=== PATIENT | female | born 1960 | race Caucasian/White ===

== ENCOUNTER 2019-01-01 11:14 | Outpatient (CLI) | payer BC, SELFPAY ==
[2019-01-01 13:10] LABS: Glucose 106 mg/dL (70-100); TSH (W/Ref FT4) 1.36 uIU/mL (0.358-3.74); Vitamin B12 482 pg/mL (193-986)
== END 2019-01-01 11:34 ==
PROVIDERS: PCP General Practice; Visit Provider General Practice
DX: G62.9 Polyneuropathy, unspecified (principal)
CPT/HCPCS: 36415; 82947; 82607; 84443

== ENCOUNTER 2019-01-15 11:36 | Outpatient (CLI) | payer BC, SELFPAY ==
[2019-01-15 12:16] LABS: Hemoglobin A1C 5.9 % (4.5-6.2)
== END 2019-01-15 11:56 ==
PROVIDERS: PCP General Practice; Visit Provider General Practice
DX: R73.09 Other abnormal glucose (principal)
CPT/HCPCS: 36415; 83036

== ENCOUNTER 2020-04-29 03:34 | Outpatient (CLI) | payer BC, SELFPAY ==
--- NOTE | 2020-04-29 | DI.MAMMO_ITS ---
EXAM: MG MAMMO SCREENING CLINICAL HISTORY: SCREENING TECHNIQUE: Bilateral full field digital CC and MLO mammographic images were obtained with 3D tomosyn thesis and utilizing computer aided detection (CAD). COMPARISON: Available for comparison. FINDINGS: Masses/Architectural Distortion: None seen. Microcalcifications: No suspicious pleomorphic-type are seen. Skin Thickening/Nipple Retraction: None. IMPRESSION: 1. No significant interval change with no specific features of malignancy noted. 2. Unless there is more urgent need, screening mammography is recommended, as per [employer] guidelines. BI-RADS Category 1 - Negative Breast Density - Category B - Scattered areas of fibroglandular density A negative radiographic report should not delay biopsy if a dominant or clinically suspicious mass is present. Up to ten percent of cancers are not identified on mammography. A negative report may reinforce clinical impression. Adenosis and dense breasts may obscure an underlying neoplasm. False positive reports average 6 to 10%. Patient will receive a letter notifying them of these results.
== END 2020-04-29 03:54 ==
PROVIDERS: PCP Nurse Practitioner Family; Visit Provider Nurse Practitioner Women's Health
DX: Z12.31 Encounter for screening mammogram for malignant neoplasm of breast (principal)
CPT/HCPCS: 77063; 77067

== ENCOUNTER 2020-05-13 01:24 | Outpatient (CLI) | payer BC, SELFPAY ==
[2020-05-13 10:31] LABS: Hemoglobin A1C 5.5 % (3.8-5.6)
[2020-05-13 11:15] LABS: Calculated LDL 142 mg/dL (<100); Cholesterol 213 mg/dL (<200); HDL Cholesterol 59 mg/dL (40-60); Triglyceride 60 mg/dL (<150)
== END 2020-05-13 01:44 ==
PROVIDERS: PCP Nurse Practitioner Family; Visit Provider Nurse Practitioner Women's Health
DX: Z13.1 Encounter for screening for diabetes mellitus (principal); Z13.220 Encounter for screening for lipoid disorders
CPT/HCPCS: 36415; 80061; 83036

== ENCOUNTER 2020-05-30 18:37 | Outpatient (REF) | payer BC, SELFPAY ==
[2020-05-30 21:24] LABS: BUN 16 mg/dL (7-18); Calcium 9.7 mg/dL (8.5-10.1); Chloride 102 mmol/L (98-107); Estimated GFR 56.75 (mL/min/1.73m2); Glucose 88 mg/dL (74-106); Potassium 4.2 mmol/L (3.5-5.1); Sodium 139 mmol/L (136-145)
== END 2020-05-30 18:57 ==
LOC: NCHCN 18:37
PROVIDERS: PCP Nurse Practitioner Family; Visit Provider Nurse Practitioner Family
DX: K21.9 Gastro-esophageal reflux disease without esophagitis (principal); R10.11 Right upper quadrant pain; C53.9 Malignant neoplasm of cervix uteri, unspecified; E78.5 Hyperlipidemia, unspecified; I10 Essential (primary) hypertension; Z00.00 Encounter for general adult medical examination without abnormal findings
CPT/HCPCS: 80048

== ENCOUNTER 2020-06-21 00:57 | Outpatient (CLI) | payer BC, SELFPAY ==
--- NOTE | 2020-06-21 | DI.CTLCSR_ITS ---
EXAM: CT CHEST LUNG CANCER SCREEN CLINICAL HISTORY: FORMER SMOKER, Z87.891, SCREENING FOR LUNG CA TECHNIQUE: COMPARISON: No exams were available for comparison FINDINGS: CT examination of the chest was performed utilizing low-dose lung cancer screening protocol images ob tained through the abdomen show unremarkable appearance of visualized portions of liver, spleen, panc reas, adrenals, and kidneys. There is no mediastinal or hilar adenopathy. Tracheobronchial tree appears intact. The lungs are cl ear except for a couple of 2-3 millimeter in diameter nodules bilaterally. No suspicious intrapulmon antonino nodule seen. No pleural effusion or pleural-based mass. IMPRESSION: No suspicious pulmonary nodule identified. Lung RADS Cat 2 - Benign Appearance / Behavior: Nodules with a very low likelihood of becoming a clin ically active cancer due to size or lack of growth Twelve month follow-up LDCT recommended.
== END 2020-06-21 01:17 ==
PROVIDERS: PCP Nurse Practitioner Family; Visit Provider Nurse Practitioner Family
DX: Z12.2 Encounter for screening for malignant neoplasm of respiratory organs (principal); Z87.891 Personal history of nicotine dependence; R91.8 Other nonspecific abnormal finding of lung field
CPT/HCPCS: G0297

== ENCOUNTER 2020-11-24 18:17 | Outpatient (REF) | payer BC, SELFPAY ==
[2020-11-24 13:51] LABS: Abs Immature Grans 0.01 10^3/uL (0.0-0.06); Absolute Basophil Count 0.05 10^3/uL (0.0-0.2); Absolute Eosinophil Count 0.04 10^3/uL (0.0-0.7); Absolute Lymphocyte Count 2.18 10^3/uL (1.2-3.4); Absolute Monocyte Count 0.55 10^3/uL (0.1-0.8); Absolute Neutrophil Count 3.75 10^3/uL (1.2-6.7); Basophils % 0.8; Eosinophils % 0.6; HCT 42.9 % (36.0-46.0); HGB 14.6 g/dL (11.2-15.7); Immature Grans % 0.2; Lymphocytes % 33.1; MCH 30.2 pg (27.0-33.0); MCV 88.6 fL (80-95); MPV 11.4 fL (8.0-11.0); Monocytes % 8.4; Neutrophils % 56.9; Nucleated RBC 0 %; Platelet Count 125 10^3/uL (130-400); RBC 4.84 10^6/uL (3.93-5.22); RDW 11.9 % (11.7-14.6); RDW-SD 38.6 fL; WBC 6.58 10^3/uL (4.4-10.8)
[2020-11-24 14:47] LABS: Iron 111 ug/dL (50-170); Total Iron Binding Capacity 335 ug/dL (250-450); Transferrin Sat 33 % (15-50)
[2020-11-24 14:52] LABS: ALT 66 U/L (14-59); AST 26 U/L (15-37); Albumin 4.5 g/dL (3.4-5.0); Alkaline Phosphatase 74 U/L (46-116); Anion Gap 12.2 mmol/L (3-11); BUN 11 mg/dL (7-18); Bilirubin, Total 0.5 mg/dL (0.2-1.0); CO2 25.8 mmol/L (21.0-32.0); CREATININE 0.86 mg/dL (0.55-1.02); Calcium 9.4 mg/dL (8.5-10.1); Chloride 102 mmol/L (98-107); Glucose 96 mg/dL (74-106); Potassium 4.2 mmol/L (3.5-5.1); Sodium 140 mmol/L (136-145); TSH (W/Ref FT4) 0.93 uIU/mL (0.36-3.74); Total Protein 7.5 g/dL (6.4-8.2); Vitamin B12 466 pg/mL (193-986)
[2020-11-24 15:06] LABS: Vitamin D 25 Total 32.3 ng/ml (30-100)
[2020-11-25 09:38] LABS: HIV-1/2 Ag & Ab Screen Negative (Negative)
[2020-11-25 10:34] LABS: Hepatitis C Ab w Rflx HCV PCR Negative (Negative)
[2020-11-25 14:33] LABS: HSV Type 1 Ab, IgG Positive (Negative); HSV Type 2 Ab, IgG Positive (Negative)
== END 2020-11-24 18:37 ==
LOC: NCHCN 18:17
PROVIDERS: PCP Nurse Practitioner Family; Visit Provider Nurse Practitioner Family
DX: Z00.00 Encounter for general adult medical examination without abnormal findings (principal); B00.9 Herpesviral infection, unspecified; R53.83 Other fatigue; F43.23 Adjustment disorder with mixed anxiety and depressed mood; F10.10 Alcohol abuse, uncomplicated; K21.9 Gastro-esophageal reflux disease without esophagitis; J30.2 Other seasonal allergic rhinitis; G60.9 Hereditary and idiopathic neuropathy, unspecified
CPT/HCPCS: 80053; 82306; 86803; 87389; 82607; 83540; 83550; 84443; 85025; 86695; 86696

== ENCOUNTER 2020-12-01 15:05 | Outpatient (REF) | payer BC, SELFPAY ==
[2020-12-01 20:56] LABS: Abs Immature Grans 0.01 10^3/uL (0.0-0.06); Absolute Basophil Count 0.05 10^3/uL (0.0-0.2); Absolute Eosinophil Count 0.03 10^3/uL (0.0-0.7); Absolute Lymphocyte Count 2.16 10^3/uL (1.2-3.4); Absolute Monocyte Count 0.62 10^3/uL (0.1-0.8); Absolute Neutrophil Count 4.43 10^3/uL (1.2-6.7); Basophils % 0.7; Eosinophils % 0.4; HCT 41.7 % (36.0-46.0); Immature Grans % 0.1; Lymphocytes % 29.6; MCH 30.1 pg (27.0-33.0); MCHC 33.6 % (32.0-36.0); MCV 89.7 fL (80-95); MPV 10.8 fL (8.0-11.0); Monocytes % 8.5; Neutrophils % 60.7; Nucleated RBC 0 %; Platelet Count 129 10^3/uL (130-400); RBC 4.65 10^6/uL (3.93-5.22); RDW-SD 39.2 fL
[2020-12-05 11:52] LABS: Hepatitis A Antibody IgM Negative (Negative); Hepatitis B Core Antibody Negative (Negative); Hepatitis B surface Ag Negative (Negative); Hepatitis C Ab w Rflx HCV PCR Negative (Negative)
== END 2020-12-01 15:25 ==
LOC: NCHCN 15:05
PROVIDERS: PCP Nurse Practitioner Family; Visit Provider Nurse Practitioner Family
DX: I10 Essential (primary) hypertension (principal); D69.6 Thrombocytopenia, unspecified; R53.83 Other fatigue; R79.89 Other specified abnormal findings of blood chemistry
CPT/HCPCS: 86704; 86709; 86803; 87340; 85025

== ENCOUNTER 2020-12-15 01:25 | Outpatient (CLI) | payer BC, SELFPAY ==
--- NOTE | 2020-12-15 | DI.US_ITS ---
EXAM: US ABDOMEN CLINICAL HISTORY: ELEVATED LFT'S,R79.89 TECHNIQUE: Ultrasound of complete upper abdomen performed using standard protocol. COMPARISON: US BREAST (DX) - CALL BACK from 05/09/2006 FINDINGS: There is no ascites evident. LIVER: Liver is hyperechoic indicating an element of steatosis. No discrete focal hepatic lesions id entified. GALLBLADDER/BILIARY: There are no gallstones. No gallbladder wall edema nor pericholecystic fluid. The common hepatic duct isnot dilated, measuring 3-4mm at the level of prachi hepatis. PANCREAS: There is no evidence of pancreatic mass nor dilatation of the pancreatic duct. SPLEEN: The spleen is not enlarged and there are no intrasplenic lesions evident. KIDNEYS:Right kidney appears unremarkable. In left kidney there are 2 small cysts. One measures 10 x 11 millimeters. The other measures 10 x 13 millimeters. ABDOMINAL AORTA: There is no evidence of abdominal aortic aneurysm. IVC: Normal diameter where visualized. IMPRESSION: 1. No evidence of cholelithiasis nor dilatation of the biliary tree. 2. Two small benign cysts in the left kidney. No focal findings in the opposite-right kidney. No h ydronephrosis. 3. There is no ascites. DATA REPOSITORY:
== END 2020-12-15 01:45 ==
PROVIDERS: PCP Nurse Practitioner Family; Visit Provider Nurse Practitioner Family
DX: K80.20 Calculus of gallbladder without cholecystitis without obstruction (principal); N28.1 Cyst of kidney, acquired; R79.89 Other specified abnormal findings of blood chemistry
CPT/HCPCS: 76700

== ENCOUNTER 2021-03-23 16:17 | Outpatient (REF) | payer BC, SELFPAY ==
[2021-03-23 21:09] LABS: Abs Immature Grans 0.01 10^3/uL (0.0-0.06); Absolute Basophil Count 0.05 10^3/uL (0.0-0.2); Absolute Eosinophil Count 0.03 10^3/uL (0.0-0.7); Absolute Lymphocyte Count 2.35 10^3/uL (1.2-3.4); Absolute Monocyte Count 0.59 10^3/uL (0.1-0.8); Absolute Neutrophil Count 3.99 10^3/uL (1.2-6.7); Basophils % 0.7; Eosinophils % 0.4; HCT 42.8 % (36.0-46.0); HGB 14.4 g/dL (11.2-15.7); Immature Grans % 0.1; Lymphocytes % 33.5; MCH 29.6 pg (27.0-33.0); MCHC 33.6 % (32.0-36.0); MCV 88.1 fL (80-95); MPV 11.6 fL (8.0-11.0); Monocytes % 8.4; Neutrophils % 56.9; Nucleated RBC 0 %; RBC 4.86 10^6/uL (3.93-5.22); RDW 11.8 % (11.7-14.6); RDW-SD 38.4 fL; WBC 7.02 10^3/uL (4.4-10.8)
[2021-03-23 21:27] LABS: ALT 68 U/L (14-59); AST 29 U/L (15-37); Albumin 4.2 g/dL (3.4-5.0); Alkaline Phosphatase 77 U/L (46-116); Anion Gap 10.7 mmol/L (3-11); BUN 14 mg/dL (7-18); Bilirubin, Total 0.5 mg/dL (0.2-1.0); CO2 26.3 mmol/L (21.0-32.0); Calcium 9.4 mg/dL (8.5-10.1); Chloride 104 mmol/L (98-107); Estimated GFR 56.56 (mL/min/1.73m2); Glucose 95 mg/dL (74-106); Potassium 4.2 mmol/L (3.5-5.1); Sodium 141 mmol/L (136-145); Total Protein 7.4 g/dL (6.4-8.2)
[2021-03-23 21:53] LABS: Diff Comment PLT Morph Reviewed; Platelet Count 112 10^3/uL (130-400)
[2021-03-23 21:54] LABS: RBC Morphology Normal
== END 2021-03-23 16:18 | disposition home or self-care (01) ==
LOC: NCHCN 16:17
PROVIDERS: PCP Nurse Practitioner Family; Visit Provider Family Medicine
DX: D69.6 Thrombocytopenia, unspecified (principal); R79.89 Other specified abnormal findings of blood chemistry
CPT/HCPCS: 80053; 85025

== ENCOUNTER 2022-02-16 14:06 | Outpatient (REF) | payer BC, SELFPAY ==
[2022-02-16 16:12] LABS: Abs Immature Grans 0.02 10^3/uL (0.0-0.06); Absolute Basophil Count 0.07 10^3/uL (0.0-0.2); Absolute Eosinophil Count 0.03 10^3/uL (0.0-0.7); Absolute Lymphocyte Count 1.89 10^3/uL (1.2-3.4); Absolute Monocyte Count 0.64 10^3/uL (0.1-0.8); Absolute Neutrophil Count 3.44 10^3/uL (1.2-6.7); Basophils % 1.1; Eosinophils % 0.5; HCT 42.3 % (36.0-46.0); HGB 14.5 g/dL (11.2-15.7); Immature Grans % 0.3; MCHC 34.3 % (32.0-36.0); MCV 87.4 fL (80-95); MPV 11.9 fL (8.0-11.0); Monocytes % 10.5; Neutrophils % 56.6; Nucleated RBC 0 %; Platelet Count 89 10^3/uL (130-400); RBC 4.84 10^6/uL (3.93-5.22); RDW 11.9 % (11.7-14.6); RDW-SD 38.1 fL; WBC 6.09 10^3/uL (4.4-10.8)
[2022-02-16 16:51] LABS: ALT 84 U/L (14-59); AST 35 U/L (15-37); Albumin 4.2 g/dL (3.4-5.0); Alkaline Phosphatase 79 U/L (46-116); Anion Gap 12.7 mmol/L (3-11); BUN 12 mg/dL (7-18); Bilirubin, Total 0.5 mg/dL (0.2-1.0); CO2 25.3 mmol/L (21.0-32.0); Calcium 9.1 mg/dL (8.5-10.1); Calculated LDL 147 mg/dL (<100); Chloride 102 mmol/L (98-107); Cholesterol 227 mg/dL (<200); Estimated GFR 56.56 (mL/min/1.73m2); Glucose 107 mg/dL (74-106); HDL Cholesterol 60 mg/dL (40-60); Potassium 4.4 mmol/L (3.5-5.1); Sodium 140 mmol/L (136-145); Total Protein 7.3 g/dL (6.4-8.2); Triglyceride 101 mg/dL (<150); Vitamin B12 445 pg/mL (193-986)
[2022-02-19 06:43] LABS: Vitamin D 25 Total 42.7 ng/mL (30-100)
== END 2022-02-16 14:07 | disposition home or self-care (01) ==
LOC: NCHCN 14:06
PROVIDERS: PCP Nurse Practitioner Family; Visit Provider Family Medicine
DX: I10 Essential (primary) hypertension (principal); F10.10 Alcohol abuse, uncomplicated; R79.89 Other specified abnormal findings of blood chemistry
CPT/HCPCS: 80053; 80061; 82306; 82607; 85025

== ENCOUNTER → 2022-03-22 02:22 | Outpatient (CLI) | payer BC, SELFPAY ==
--- NOTE | 2022-03-22 09:19 | DI.MAMMO_ITS ---
Exam(s) MAMMO SCREENING EXAM: MAMMO SCREENING CLINICAL HISTORY: SCREENING MAMMO FOR BREAST CANCER Z12.31 TECHNIQUE: Mammograms were interpreted according to the usual protocol including computer analysis w iJento CAD system, tomosynthesis and C-view imaging. COMPARISON: FINDINGS: The breasts are of moderate density with fairly symmetrical distribution of fibroglandular tissue. N o dominant mass or clumped microcalcification is identified in either breast. The current examinatio n is compared with previous examinations including April 2020 and there has been no gross interval skyler nge in appearance in comparison with the prior studies. IMPRESSION: No specific evidence of malignancy at this time. Routine screening examinations are suggested at yea rly intervals in this age group according to the ACS ACR guidelines. BI-RADS Category 1 - Negative Breast Density - Category B - Scattered areas of fibroglandular density
== END ==
PROVIDERS: PCP Nurse Practitioner Family; Visit Provider Family Medicine
DX: Z12.31 Encounter for screening mammogram for malignant neoplasm of breast (principal)
CPT/HCPCS: 77063; 77067

== ENCOUNTER 2022-08-23 02:29 | Outpatient (CLI) | payer BC, SELFPAY ==
[2022-08-23 09:59] LABS: Abs Immature Grans 0.01 10^3/uL (0.0-0.06); Absolute Basophil Count 0.06 10^3/uL (0.0-0.2); Absolute Eosinophil Count 0.04 10^3/uL (0.0-0.7); Absolute Lymphocyte Count 1.99 10^3/uL (1.2-3.4); Absolute Monocyte Count 0.58 10^3/uL (0.1-0.8); Absolute Neutrophil Count 3.36 10^3/uL (1.2-6.7); Eosinophils % 0.7; HCT 41.4 % (36.0-46.0); HGB 14.2 g/dL (11.2-15.7); Immature Grans % 0.2; Lymphocytes % 32.9; MCH 30.4 pg (27.0-33.0); MCHC 34.3 % (32.0-36.0); MCV 89 fL (80-95); MPV 10.8 fL (8.0-11.0); Monocytes % 9.6; Neutrophils % 55.6; RBC 4.67 10^6/uL (3.93-5.22); RDW-SD 39.1 fL; WBC 6.04 10^3/uL (4.4-10.8)
[2022-08-23 10:24] LABS: Prothrombin Time 9.9 sec (9.3-11.0)
[2022-08-23 10:26] LABS: Platelet Count 96 10^3/uL (130-400)
[2022-08-23 10:30] LABS: ALT 71 U/L (14-59); AST 32 U/L (15-37); Alkaline Phosphatase 68 U/L (46-116); Anion Gap 10.6 mmol/L (3-11); BUN 10 mg/dL (7-18); Bilirubin, Total 0.5 mg/dL (0.2-1.0); CO2 26.4 mmol/L (21.0-32.0); Calcium 9.1 mg/dL (8.5-10.1); Chloride 101 mmol/L (98-107); Estimated GFR 64.09 (mL/min/1.73m2); Glucose 117 mg/dL (74-106); Lipase 211 U/L (73-393); Potassium 4.3 mmol/L (3.5-5.1); Sodium 138 mmol/L (136-145); Total Protein 7.3 g/dL (6.4-8.2)
== END 2022-08-23 02:30 | disposition home or self-care (01) ==
LOC: LBO 02:29
PROVIDERS: PCP Nurse Practitioner Family; Visit Provider Surgery
DX: D69.6 Thrombocytopenia, unspecified (principal); F10.10 Alcohol abuse, uncomplicated; F12.90 Cannabis use, unspecified, uncomplicated; K21.9 Gastro-esophageal reflux disease without esophagitis; Z87.891 Personal history of nicotine dependence; R10.9 Unspecified abdominal pain; R79.89 Other specified abnormal findings of blood chemistry; G62.9 Polyneuropathy, unspecified; I10 Essential (primary) hypertension; R10.13 Epigastric pain
CPT/HCPCS: 36415; 80053; 83690; 85025; 85610

== ENCOUNTER 2022-08-27 16:47 | Outpatient (REF) | payer BC, SELFPAY ==
[2022-08-29 13:35] LABS: Helicobacter pylori Ag, Feces Negative (Negative)
== END 2022-08-27 16:48 | disposition home or self-care (01) ==
LOC: LBN 16:47
PROVIDERS: PCP Nurse Practitioner Family; Visit Provider Surgery
DX: K21.9 Gastro-esophageal reflux disease without esophagitis (principal); R10.9 Unspecified abdominal pain
CPT/HCPCS: 87338

== ENCOUNTER 2024-10-06 11:00 | Outpatient (CLI) | payer BC, SELFPAY ==
[2024-10-06 10:55] LABS: ALT 71 U/L (14-59); AST 37 U/L (15-37); Albumin 4.2 g/dL (3.4-5.0); Alkaline Phosphatase 72 U/L (46-116); Anion Gap 10.3 mmol/L (3-11); BUN 13 mg/dL (7-18); Bilirubin, Total 0.66 mg/dL (0.2-1.0); CO2 27.7 mmol/L (21.0-32.0); Calcium 9.2 mg/dL (8.5-10.1); Calculated LDL 165 mg/dL (<100); Chloride 102 mmol/L (98-107); Cholesterol 260 mg/dL (<200); Glucose 141 mg/dL (74-106); HDL Cholesterol 71 mg/dL (40-60); Potassium 4.3 mmol/L (3.5-5.1); Sodium 140 mmol/L (136-145); Total Protein 7.6 g/dL (6.4-8.2); Triglyceride 121 mg/dL (<150)
== END 2024-10-06 11:01 | disposition home or self-care (01) ==
LOC: LBO 11:00
PROVIDERS: PCP Nurse Practitioner Family; Visit Provider Family Medicine
DX: Z00.00 Encounter for general adult medical examination without abnormal findings (principal)
CPT/HCPCS: 36415; 80053; 80061; 82306

== ENCOUNTER 2025-02-15 01:03 | Outpatient (CLI) | payer BC, SELFPAY ==
--- NOTE | 2025-02-15 | DI.MAMMO_ITS ---
Exam(s) MAMMO SCREENING EXAM: MAMMO SCREENING CLINICAL HISTORY: SCREENING MAMMO Z12.31 TECHNIQUE: Bilateral full field digital CC and MLO mammographic images were obtained with 3D tomosyn thesis and utilizing computer aided detection (CAD). COMPARISON: Available for comparison. FINDINGS: Masses/Architectural Distortion: There are few scattered nodule seen in both breasts. No suspicious or new nodules are seen. No areas of architectural distortion are present. Microcalcifications: No suspicious pleomorphic-type are seen. Skin Thickening/Nipple Retraction: None. IMPRESSION: 1. No significant interval change with no specific features of malignancy noted. 2. Unless there is more urgent need, screening mammography is recommended, as per [employer] guidelines. BI-RADS Category 2 - Benign Findings Breast Density - Category B - Scattered areas of fibroglandular density Breast density category C or D implies that the patient has dense breast tissue. Dense breast tissue is very common and is not abnormal but dense breast tissue can make it harder to find cancer on a ma mmogram. Also, dense breast tissue may increase their breast cancer risk. This information about the result of the mammogram report was provided to the patient to raise their awareness. Use this report when you speak with the patient about their risks for breast cancer, which includes their family hist ory. At that time, you may recommend for more screening tests (Ultrasound or MRI) as they might be us eful based on their risk. A negative radiographic report should not delay biopsy if a dominant or clinically suspicious mass is present. Up to ten percent of cancers are not identified on mammography. A negative report may reinforce clinical impression. Adenosis and dense breasts may obscure an underlying neoplasm. False positive reports average 6 to 10%. Patient will receive a letter notifying them of these results.
== END 2025-02-15 01:23 ==
PROVIDERS: PCP Nurse Practitioner Family; Visit Provider Family Medicine
DX: Z12.31 Encounter for screening mammogram for malignant neoplasm of breast (principal); R92.323 Mammographic fibroglandular density, bilateral breasts; D24.1 Benign neoplasm of right breast; D24.2 Benign neoplasm of left breast
CPT/HCPCS: 77063; 77067

== ENCOUNTER 2025-03-23 08:55 | Emergency (ER) | payer BC, SELFPAY ==
[2025-03-23 08:58] VITALS: BP 184/105; PULSE 67; RESP 18; TEMP 36.5; O2SAT 96
[2025-03-23 09:03] VITALS: BP 184/105; PULSE 67; RESP 18; TEMP 36.5; O2SAT 96
--- NOTE | 2025-03-23 09:45 | DI.US_ITS ---
Exam(s) US ABDOMEN LIMITED EXAM: US ABDOMEN LIMITED CLINICAL HISTORY: ruq pain TECHNIQUE: Ultrasound abdomen performed using standard protocol. COMPARISON: US US ABDOMEN LIMITED from 04/12/[address] ABDOMEN PELVIS W from 03/23/2025 FINDINGS: There is no ascites evident. LIVER: Liver is somewhat hyperechoic indicating steatosis but there are no discrete focal hepatic les ions evident. GALLBLADDER/BILIARY: There are no gallstones. No gallbladder wall edema nor pericholecystic fluid. The common hepatic duct isnot dilated, measuring 3-4mm at the level of prachi hepatis. PANCREAS: There is no evidence of pancreatic mass nor dilatation of the pancreatic duct. RIGHT KIDNEY:No evidence of solid mass, calculus, nor hydronephrosis. No cortical cysts evident. IMPRESSION: 1. No evidence of cholelithiasis nor dilatation of the biliary tree. 2. Mild hepatic steatosis. No discrete focal hepatic lesions. 3. No other significant right upper quadrant ultrasound findings and there is no ascites evident. DATA REPOSITORY:
--- NOTE | 2025-03-23 09:45 | RT.EKG_ITS ---
APPROVED REPORT Exam: Resting ECG Reason for Exam: Chest pain Patient Location: E HR:59 bpm ECG Measurements Heart Rate 59 AXIS OR 167 P 65 QRSd 86 QRS 75 QT 452 T 92 QTc 448 Conclusion Sinus bradycardia...rate< 60 Probable LVH with secondary repol abnrm...multiple LVH criteria No Occlusion AR
--- NOTE | 2025-03-23 09:45 | DI.RAD_ITS ---
Exam(s) XR CHEST 2V PA LATERAL EXAM: XR CHEST 2V PA LATERAL CLINICAL HISTORY: chest pain. TECHNIQUE: 2D digital imaging was performed. COMPARISON: No exams were available for comparison FINDINGS: 2 views: Heart size is normal. The mediastinum is not widened. Lungs are clear. No infiltrates nor pleural effusions. Small bilateral hyperinflation IMPRESSION: No acute pulmonary findings. DATA REPOSITORY: RADIATION DOSE DELIVERED:
--- NOTE | 2025-03-23 09:53 | ED.GENADUL_ITS ---
Discharge Plan Disposition Patient Disposition: Home Discharge Details Clinical Impression: Right upper quadrant pain, Thrombocytopenia Primary Care Provider: Sarai Shaw ED Provider: Mo Seals Home Meds and New Rx's Prescriptions: Continued polyethylene glycol 3350 17 gram/dose powder 238 g PO ONCE Qty: 238 0RF Rx Instructions: take per colonoscopy instructions bisacodyl [Dulcolax (bisacodyl)] 5 mg tablet,delayed release (DR/EC) 5 mg PO ONCE Qty: 4 0RF Rx Instructions: take per colonoscopy instructions atenolol 25 mg tablet 100 mg PO DAILY doxazosin 2 mg tablet 2 mg PO DAILY omeprazole 20 mg capsule,delayed release(DR/EC) 20 mg PO HS thiamine HCl (vitamin B1) 100 mg tablet 100 mg PO DAILY Discharge Instructions Additional Instructions: You are seen in the emergency department for your abdominal pain. Your CAT scan showed no sign of any kidney stones. Your ultrasound showed no sign of any problems with your gallbladder. Your kidneys are working well. As we discussed your platelet levels are slightly low. This may be the result of alcohol. Please consider cutting back on your alcohol. You have had no signs of heart attack. You have no signs of pancreatitis. Your kidneys are working well. Your blood pressure was initially elevated in the emergency department. Please follow-up with your primary care provider about your elevated blood pressure. Please continue taking your home medications as previously prescribed. For your pain please take medications as follows: 1. Take acetaminophen (Tylenol), 1,000 mg (two 500 mg tabs) every 6 hours HPI General Date/Time Provider Initiated Documentation: 03/23/25 09:09 . HPI Narrative: MDM This is a quite well-appearing normothermic and nontachycardic 65-year-old female with right upper quadrant tenderness positive Castillo sign for which patient will receive right upper quadrant ultrasound. Given sex will obtain troponin and ECG to assess for ACS. I considered PE however the patient is not complaining of shortness of breath and is neither hypoxic nor tachycardic I did not order D-dimer. Ureterolithiasis is certainly on the differential as is pancreatitis given history of alcohol abuse so if right upper quadrant ultrasound is reassuring we will proceed to CT abdomen pelvis. I considered sepsis however the patient denies any fevers and has reassuring vitals. No right lower quadrant tenderness to suggest appendicitis. No history of diarrhea nor left lower quadrant tenderness to suggest diverticulitis. Patient has not been vomiting to suggest small bowel obstruction. No pain out of proportion to suggest necrotizing soft tissue infection. No dysuria nor frequency so my suspicion is low for UTI. Not altered to suggest ascending cholangitis. 4:11 PM Late charting due to patient care. Patient had reassuring evaluation including a reassuring CT reassuring right upper quadrant ultrasound. Her blood pressure improved but still slightly elevated. Reassuring troponins. I advised that if the patient developed chest pain could not eat or drink as result of nausea or vomiting or if she had any other concerns that she should return to the emergency department. Otherwise I advised outpatient PCP follow-up to discuss her thrombocytopenia and her elevated blood pressure without diagnosis of hypertension. I also advised that if she developed any rash to her abdomen that she should return to the emergency department. HPI This is a 65-year-old daily drinker arriving to the emergency department via private vehicle in the setting of right upper quadrant pain which began 2 nights ago. She reports her pain was preceded by numbness that started last . The numbness has not subsided, leading her to believe something is amiss. She reports no associated nausea, vomiting, or fever. Her appetite remains unaffected, although she abstained from eating this morning due to uncertainty about her condition. She has not consumed any food since midnight, except for water and her medications. She reports no history of gastrointestinal surgeries. She has a known hiatal hernia but is uncertain if it is contributing to her current symptoms. She also reports no chest pain or respiratory distress but admits to feeling anxious due to fear of the unknown. She has no history of kidney stones. She reports no skin rashes. She is a daily alcohol consumer but did not drink last night. She does not experience tremors when abstaining from alcohol. She has no history of deep vein thrombosis or pulmonary embolism. She reports no dysuria. Her last bowel movement was this morning, which was minimal due to decreased food intake the previous night. She is not currently in pain unless the area is palpated. She speculates that her symptoms may be related to his gallbladder, liver, or pancreas. Exam General: Well-appearing in no acute distress speaking in complete sentences. Head: Normocephalic, atraumatic. Eye: Extraocular eye movements intact. No conjunctival injection. No scleral icterus. Ear, nose, mouth, throat: Grossly normal inspection. Normal voice, handling secretions normally. Neck: Trachea midline. Cardiovascular: Well-perfused distal extremities. Regular rate and rhythm. Respiratory: Nonlabored respiration. Clear lungs bilaterally. Gastrointestinal: Nondistended abdomen. Soft. Right upper quadrant tenderness with Castillo sign. No rebound. No guarding. No rash to abdomen. Musculoskeletal: No edema. Moving all 4 extremities spontaneously. Skin: Normal for age and race, grossly normal temperature and turgor. No acute rash. Neurologic: Alert and appropriate, no apparent acute deficits. Psychiatric: Mood and manner are appropriate. Grooming and personal hygiene are appropriate. Related Data Home Medications ?Medication ?Instructions ?Recorded ?Confirmed atenolol 25 mg tablet 100 mg PO DAILY 12/29/20 03/23/25 doxazosin 2 mg tablet 2 mg PO DAILY 12/29/20 03/23/25 omeprazole 20 mg capsule,delayed 20 mg PO HS 12/29/20 03/23/25 release thiamine HCl (vitamin B1) 100 mg 100 mg PO DAILY 12/29/20 03/23/25 tablet bisacodyl 5 mg tablet,delayed 5 mg PO ONCE colonscopy bowel prep 08/16/22 03/23/25 release (Dulcolax (bisacodyl)) #4 tabs polyethylene glycol 3350 17 238 g PO ONCE colonoscopy prep 08/16/22 03/23/25 gram/dose oral powder #238 grams Previous Rx's ?Medication ?Instructions ?Recorded bisacodyl 5 mg tablet,delayed 5 mg PO ONCE colonscopy bowel prep 08/16/22 release (Dulcolax (bisacodyl)) #4 tabs polyethylene glycol 3350 17 238 g PO ONCE colonoscopy prep 08/16/22 gram/dose oral powder #238 grams Allergies Allergy/AdvReac Type Severity Reaction Status Date / Time Penicillins Allergy Unknown Unknown Unverified 03/23/25 09:01 General Stated Complaint: Abd Prob ELIANE: 3 Course Vital Signs Vital signs: Vital Signs Temperature 36.5 C 03/23/25 08:58 Pulse 67 03/23/25 08:58 Respiratory Rate 18 03/23/25 08:58 Blood Pressure 184/105 H 03/23/25 08:58 Pulse Oximetry 96 03/23/25 08:58 Temperature 36.5 C 03/23/25 09:03 Temperature Source Oral 03/23/25 09:03 Pulse 67 03/23/25 09:03 Respiratory Rate 18 03/23/25 09:03 Blood Pressure 184/105 H 03/23/25 09:03 Pulse Oximetry 96 03/23/25 09:03 Medical Decision Making Quality:SDOH Health Related Social Needs: No Data to Display PFSH All Active Problems (Updated 03/23/25 @ 14:02 by Mo Seals MD) Thrombocytopenia (Chronic) Right upper quadrant pain (Acute) Borderline systolic HTN (Acute) ETOH abuse (Chronic) Elevated LFTs (Acute) Medical History (Updated 03/23/25 @ 14:02 by Mo Seals MD) Marijuana use Thrombocytopenia Hyperlipidemia Cervical cancer Abdominal pain GERD (gastroesophageal reflux disease) Former smoker Alcohol abuse Dyspepsia Stress incontinence Peripheral neuropathy Back pain Leg cramps Adjustment disorder with mixed anxiety and depressed mood Seasonal allergies Herpes simplex Essential hypertension Surgical History (Updated 10/18/16 @ 15:37 by Mikael Peres DO) Colonoscopy - IV Sedation Social History Smoking/Tobacco Use Status: Never Smoking risk assessment performed?: Yes Alcohol Intake: current Alcohol Intake frequency: 3 or more drinks per day Drug use: Daily Substance use type: marijuana Do you feel safe at home: Yes Do you feel safe in your relationship?: Yes PAWSS Have you Been Recently Intoxicated or Drunk Within the Last 30 days?: No Have you Ever Experienced Previous Episodes of Alcohol Withdrawal?: No Have you ever Experienced Withdrawal Seizures?: No Have you ever Experienced Delirium Tremens(DT)s?: No Have you ever undergone Alcohol Rehabilitation Treatment (i.e, inpt ot outpatient treatment programs)?: No Have you ever Experienced Blackouts?: No Have you ever Combined Alcohol with other Downers within the last 90 days?: No Have you ever Combined Alcohol with any other Substance of Abuse during the last 90 days?: No Positive Blood Alcohol level on Presentation? [PCS.BAL]: No Evidence of Increased Autonomic Activity (i.e. HR>120, tremor, sweating, agitation, nausea)?: No Result: 0
[2025-03-23 10:26] LABS: Abs Immature Grans 0.07 10^3/uL (0.0-0.06); Absolute Basophil Count 0.06 10^3/uL (0.0-0.2); Absolute Eosinophil Count 0.01 10^3/uL (0.0-0.7); Absolute Lymphocyte Count 1.45 10^3/uL (1.2-3.4); Absolute Monocyte Count 0.61 10^3/uL (0.1-0.8); Absolute Neutrophil Count 5.71 10^3/uL (1.2-6.7); Basophils % 0.8 %; Eosinophils % 0.1 %; HCT 44.3 % (36.0-46.0); HGB 15.7 g/dL (11.2-15.7); Immature Grans % 0.9 %; Lymphocytes % 18.3 %; MCH 30.3 pg (27.0-33.0); MCHC 35.4 % (32.0-36.0); MCV 86 fL (80-95); MPV 12.5 fL (8.0-11.0); Monocytes % 7.7 %; Neutrophils % 72.2 %; RBC 5.18 10^6/uL (3.93-5.22); RDW 11.9 % (11.7-14.6); RDW-SD 37.3 fL; WBC 7.91 10^3/uL (4.4-10.8)
--- NOTE | 2025-03-23 10:26 | DI.CT_ITS ---
Exam(s) CT ABDOMEN PELVIS W EXAM: CT ABDOMEN PELVIS W CLINICAL HISTORY: Right upper quadrant pain. TECHNIQUE: Imaging Protocol: Axial computed tomography images with coronal and sagittal reformatted images were created and reviewed CONTRAST MATERIAL: Intravenous: Omnipaque-350 75cc Oral: None COMPARISON: No exams were available for comparison FINDINGS: VISUALIZED LUNG BASES: No nodules nor pleural effusions evident. ABDOMEN: There is no ascites. LIVER: There are no focal hepatic lesions evident. No dilated intrahepatic ducts. GALLBLADDER/BILIARY: No obvious gallbladder pathology. CBD is not dilated. PANCREAS: No evidence of pancreatic mass nor dilatation of the pancreatic duct. SPLEEN: Spleen is not enlarged. No obvious intrasplenic lesions. Splenic and portal veins are paten t. ADRENALS: There are no significant adrenal masses. KIDNEYS:There is a small benign 1 cm cyst in the lateral cortex of the left kidney. This does not re quire further imaging workup. No solid renal masses. No calculi nor hydronephrosis.. ABDOMINAL AORTA: Abdominal aorta is calcified but not enlarged. The iliac arteries are also calcifie d but not enlarged. LYMPH NODES:There is no retroperitoneal nor paraaortic adenopathy. ABDOMINAL WALL: No evidence of significant anterior abdominal wall nor inguinal hernia. GI: There is no evidence of bowel obstruction, free air, nor abscess. PELVIS: GI: No evidence of appendicitis.There are few scattered sigmoid diverticuli but no evidence of divert iculitis. LYMPH NODES: There is no intrapelvic nor inguinal adenopathy. REPRODUCTIVE: Uterus size is unremarkable. No abnormal adnexal masses nor free fluid in the pelvis. URINARY BLADDER: Mild uniform thickening of the urinary bladder wall. No distinct masses nor intralu jorge calculi. The pelvic ureters are not dilated. OSSEOUS: No fractures and no significant osseous lesions. Schmorl's node invagination in the inferior endplate of L3 incidentally noted. No compression fractu re. IMPRESSION: 1. No significant acute findings in the abdomen and pelvis. 2. No evidence of appendicitis nor acute diverticulitis. Report called by myself to ER physician 03/23/2025 at 11:35 a.m. RADIATION DOSE DELIVERED: 459.72mGy.cm Total DLP DATA REPOSITORY: All CT scans at this facility are submitted to the National Radiology Data Registry (NRDR) Dose Index Registry (DIR) with the [employer] (ACR). RADIATION OPTIMIZATION: All CT scans at this facility use at least one of these dose optimization te chniques: automated exposure control; mA and/or kV adjustment per patient size (includes targeted exa ms where dose is matched to clinical indication); or iterative reconstruction.
[2025-03-23 10:40] LABS: Platelet Count 44 10^3/uL (130-400)
[2025-03-23] MEDS: Omnipaque 350 MG/ML 100 ML BTL 75 ML IJ (10:52)
[2025-03-23 10:53] LABS: ALT 60 U/L (14-59); AST 49 U/L (15-37); Albumin 4.1 g/dL (3.4-5.0); Alkaline Phosphatase 81 U/L (46-116); Anion Gap 9.3 mmol/L (3-11); BUN 11 mg/dL (7-18); Bilirubin, Total 0.8 mg/dL (0.2-1.0); CO2 25.7 mmol/L (21.0-32.0); CREATININE 0.9 mg/dL (0.55-1.02); Calcium 9.7 mg/dL (8.5-10.1); Chloride 100 mmol/L (98-107); Estimated GFR 71.39 (mL/min/1.73m2); Glucose 133 mg/dL (74-106); Lipase 28 U/L (<78); Potassium 4.5 mmol/L (3.5-5.1); Sodium 135 mmol/L (136-145); Troponin I 5 ng/L (<or=51)
[2025-03-23] MEDS: Normal Saline - Diluent 50 ML VIAL IJ (10:53)
[2025-03-23 11:49] LABS: Troponin I 4 ng/L (<or=51)
[2025-03-23 14:04] VITALS: BP 157/95
== END 2025-03-23 14:14 | disposition home or self-care (01) ==
PROVIDERS: Emergency Provider Emergency Medicine; PCP Nurse Practitioner Family
DX: R10.11 Right upper quadrant pain (principal); D69.6 Thrombocytopenia, unspecified; F10.10 Alcohol abuse, uncomplicated; E78.5 Hyperlipidemia, unspecified; I10 Essential (primary) hypertension
CPT/HCPCS: 80053; 83690; 93005; 99285; 71046; 74177; 76705; 84484; 85025; 93010; 99284; J3490

== ENCOUNTER 2025-03-31 13:27 | Outpatient (REF) | payer BC, SELFPAY ==
[2025-03-31 18:09] LABS: ALT 41 U/L (14-59); AST 23 U/L (15-37); Albumin 3.9 g/dL (3.4-5.0); Alkaline Phosphatase 84 U/L (46-116); Anion Gap 7.8 mmol/L (3-11); BUN 13 mg/dL (7-18); Bilirubin, Total 0.5 mg/dL (0.2-1.0); CO2 28.2 mmol/L (21.0-32.0); CREATININE 0.9 mg/dL (0.55-1.02); Calcium 9.2 mg/dL (8.5-10.1); Chloride 103 mmol/L (98-107); Estimated GFR 71.39 (mL/min/1.73m2); GGT 67 U/L (5-55); Glucose 145 mg/dL (74-106); Potassium 3.8 mmol/L (3.5-5.1); Sodium 139 mmol/L (136-145); Total Protein 6.9 g/dL (6.4-8.2)
== END 2025-03-31 13:28 | disposition home or self-care (01) ==
LOC: NCHCN 13:27
PROVIDERS: PCP Nurse Practitioner Family; Visit Provider Family Medicine
DX: D69.1 Qualitative platelet defects (principal)
CPT/HCPCS: 80053; 82977; 85025

== ENCOUNTER 2025-04-06 18:41 | Outpatient (REF) | payer BC, SELFPAY ==
[2025-04-06 15:25] LABS: Abs Immature Grans 0.01 10^3/uL (0.0-0.06); Absolute Basophil Count 0.07 10^3/uL (0.0-0.2); Absolute Eosinophil Count 0.05 10^3/uL (0.0-0.7); Absolute Lymphocyte Count 2.21 10^3/uL (1.2-3.4); Absolute Monocyte Count 0.45 10^3/uL (0.1-0.8); Absolute Neutrophil Count 3.82 10^3/uL (1.2-6.7); Basophils % 1.1 %; Eosinophils % 0.8 %; HCT 42.3 % (36.0-46.0); HGB 14.4 g/dL (11.2-15.7); Immature Grans % 0.2 %; Lymphocytes % 33.4 %; MCH 29.8 pg (27.0-33.0); MCV 88 fL (80-95); MPV 11.8 fL (8.0-11.0); Monocytes % 6.8 %; Neutrophils % 57.7 %; RBC 4.83 10^6/uL (3.93-5.22); RDW 11.9 % (11.7-14.6); RDW-SD 38.2 fL; WBC 6.61 10^3/uL (4.4-10.8)
[2025-04-06 15:48] LABS: Diff Comment PLT Morph Reviewed; Platelet Count 79 10^3/uL (130-400); RBC Morphology Normal
== END 2025-04-06 18:42 | disposition home or self-care (01) ==
LOC: NCHCN 18:41
PROVIDERS: PCP Nurse Practitioner Family; Visit Provider Family Medicine
DX: D69.6 Thrombocytopenia, unspecified (principal)
CPT/HCPCS: 85025

== ENCOUNTER 2025-07-21 11:58 | Outpatient (REF) | payer BC, SELFPAY ==
[2025-07-21 14:33] LABS: Abs Immature Grans 0.02 10^3/uL (0.0-0.06); HCT 42.9 % (36.0-46.0); HGB 14.7 g/dL (11.2-15.7); Immature Grans % 0.3 %; MCH 29.5 pg (27.0-33.0); MCHC 34.3 % (32.0-36.0); MCV 86 fL (80-95); MPV 12.2 fL (8.0-11.0); RBC 4.98 10^6/uL (3.93-5.22); RDW 11.8 % (11.7-14.6); RDW-SD 37.2 fL; WBC 6.42 10^3/uL (4.4-10.8)
[2025-07-21 15:00] LABS: Platelet Count 64 10^3/uL (130-400)
== END 2025-07-21 11:59 | disposition home or self-care (01) ==
LOC: NCHCN 11:58
PROVIDERS: PCP Nurse Practitioner Family; Visit Provider Family Medicine
DX: D69.6 Thrombocytopenia, unspecified (principal)
CPT/HCPCS: 85025